=== PATIENT | male | born 1970 | race Caucasian/White ===

== ENCOUNTER 2016-09-01 08:51 | Outpatient (CLI) ==
[2015-11-26 18:57] VITALS: BMI 29.4
--- NOTE | 2016-09-01 10:02 | DI ---
EXAM: Left knee three-view HISTORY: Pain COMPARISON: None FINDINGS: The bones are normal. The medial, lateral, and patellofemoral compartments are normal in height. No joint effusion. IMPERSSION: Normal examination.
--- NOTE | 2016-09-01 10:02 | DI ---
EXAM: Three views of the right knee. History: Right knee pain. Findings: No acute fracture or dislocation. No abnormal calcifications or radiopaque foreign lee ann s. Joint spaces are preserved. Impression: No acute osseous abnormality.
== END 2016-09-01 08:52 | disposition home or self-care (01) ==
LOC: RAD 08:51
PROVIDERS: ATTEND Family Medicine
DX: M25.569 Pain in unspecified knee (principal); G89.29 Other chronic pain

== ENCOUNTER 2017-05-03 14:13 | Outpatient (CLI) ==
[2015-11-26 18:57] VITALS: BMI 29.4
== END 2017-05-03 14:14 | disposition home or self-care (01) ==
LOC: CAR 14:13
PROVIDERS: ATTEND Family Medicine
DX: G47.33 Obstructive sleep apnea (adult) (pediatric) (principal); I10 Essential (primary) hypertension
CPT/HCPCS: 95811